=== PATIENT | male | born 1955 | race Two or more races ===

== ENCOUNTER 2019-05-22 10:49 | Day surgery (SDC) | payer OTHER ==
[~2019-05-22 10:49] MED LIST: BUPIVACAINE HCL 0.25 % INJ/PF (2.5 MG/1 ML) 30 ML VIAL ONE; CHONDR SU A NA/HYALUR INTRAOC KIT (SURGICARE) ONE; DORZOLAMIDE HCL 2%/TIMOLOL MALEAT 0.5% OPH SOLN 10 ML OS PRN; EPINEPHRINE INJ/PF 1 MG/1 ML AMPULE ONE; HYALURONIDASE INJ 150 UNIT/1 ML VIAL ONE; KETOROLAC TROMETHAMINE 0.45% 4 DROP/0.4 ML DROPERETTE OS PRN; LIDOCAINE 1%/PHENYLEPHRINE 1.5% 1 ML VIAL ONE; LIDOCAINE 2% INJ-PF (20 MG/ML) 10 ML AMPUL ONE
[2019-05-22] MEDS: CYCLOPENTOLATE 0.2%/PHENYLEPHRINE 1% OPH SOLN 2 ML OS PRN ×3 (12:15→12:35)
[2019-05-22] MEDS: BESIFLOXACIN HCL 0.6% OPH SUSP 5 ML BOTTLE OS PRN ×4 (12:15→13:28)
[2019-05-22] MEDS: TROPICAMIDE 1% OPH SOLN 15 ML OS PRN ×3 (12:15→12:35)
[2019-05-22] MEDS: TETRACAINE HCL 0.5% OPH SOLN 4 ML OS PRN ×3 (12:16→12:51)
[2019-05-22] MEDS ORDERED: FENTANYL CITRATE INJ/PF 100 MCG/2 ML AMPUL ONE (12:38)
[2019-05-22] MEDS ORDERED: MIDAZOLAM 2 MG/2 ML INJ ONE (12:38)
[2019-05-22] MEDS ORDERED: PROPOFOL INJ 200 MG/20 ML VIAL IV ONE (12:38)
[2019-05-22] MEDS ORDERED: ONDANSETRON HCL INJ/PF 4 MG/2 ML SDV ONE (12:38)
[2019-05-22] MEDS ORDERED: LIDOCAINE 2% INJ-PF (100 MG/5 ML) SYRINGE ONE (12:38)
[2019-05-22] MEDS ORDERED: TRYPAN BLUE 0.06 % OPH SOLN 0.5 ML DISP.SYRIN ONE (13:00)
[2019-05-22] MEDS ORDERED: CHONDR SU A NA/HYALUR SOD 0.5 ML DISP.SYRIN ONE (13:26)
[2019-05-22] MEDS: TOBRAMYCIN SULFATE/DEXAMETH OPH OINTMENT 3.5 GM ONE ×2 (13:28)
[2019-05-22] MEDS: DORZOLAMIDE HCL 2%/TIMOLOL MALEAT 0.5% OPH SOLN 10 ML OS PRN ×2 (13:28)
--- NOTE | 2019-05-23 07:51 | Operative Report ---
Operative Report-[facility] Operative Report: DATE OF SURGERY: [05/22/2019] PREOPERATIVE DIAGNOSIS: Mature Cataract, left eye, POSTOPERATIVE DIAGNOSIS: Mature Cataract, left eye, OPERATION: Complex Cataract extraction with insertion of an IOL of the left eye and use of trypan blue dye Intraocular Lens Model: [19.5 sn60wf] Reason for surgery was difficulty seeing road signs and words on the television SURGEON: William Elizondo MD ANESTHESIA: Topical and retrobulbar block of 2% lidocaine, 0.75% marcaine, 75 units vitrase PROCEDURE: After obtaining appropriate consent, the patient's left eye was prepped and draped in a sterile fashion as well as the surgeon in the sterile manner and cataract surgery was started. First a paracentesis blade was used to make a side-port incision. Viscoelastic was used to inflate the anterior chamber. Next a 2.4 mm incision was made with a 2.4 mm blade, clear corneal temporarily. Due to poor red reflex trypan blue dye was used to stain the anterior capsule. A continuous capsulorrhexis was made using a cystotome and Utrata forceps. Following this hydrodissection was carried out to make the lens fully loose and mobile and it was rotated freely. Following this, a divide and conquer technique was used to phacoemulsify the lens.. The remaining cortex was removed with an irrigation/aspiration. Provisc was instilled into the capsular bag to inflate the bag. The intraocular lens was placed. The remaining viscoelastic material was removed with irrigation/aspiration. Following this, the incision was found to be watertight. This was removed at the end of the case. Besivance and Cosopt was instilled into the eye and a protective shield was placed over the eye. The patient was returned to the postoperative recovery in a stable condition.
== END 2019-05-22 14:05 | disposition home or self-care (01) ==
LOC: SC 10:49
PROVIDERS: ATTEND Internal Medicine
DX: H25.89 Other age-related cataract (principal); J45.909 Unspecified asthma, uncomplicated; Z79.51 Long term (current) use of inhaled steroids
CPT/HCPCS: 66982; 00142; V2632; J2250; J3490 ×6; J0171; J2001; J2405; J2704; J3470; J2370; 142; J3010